=== PATIENT | male | born 1960 | race Caucasian/White ===

== ENCOUNTER → 2018-11-09 | Outpatient (CLI) | payer OTHER ==
--- NOTE | 2018-11-09 15:39 | RAD ---
Indication: Left breast palpable abnormality. Technique: Limited left breast ultrasound the region of palpable abnormality. Comparison: Same date diagnostic mammogram Findings: At 9:00 position approximately 3 cm from the nipple in the region of palpable abnormality there is a lobulated oval-shaped masslike lesion measuring 2.2 x 0.6 x 1.6 cm which is wider than taller and is isoechoic to the rest of the breast parenchyma. No internal vascularity or posterior shadowing is seen. 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 If there is a change in the size or symptoms a repeat ultrasound is recommended. Clinical correlation. BI-RADS 2: Benign finding.
--- NOTE | 2018-11-10 14:49 | RAD ---
DATE: 11/09/2018 EXAM: DIGITAL DIAGNOSTIC BILATERAL HISTORY: Left breast palpable abnormality for 2-3 months. COMPARISON: None This study was interpreted with the benefit of Computerized Aided Detection (CAD ). FINDINGS: Breast Density: FATTY The Breast Parenchyma is primarily fatty replaced. Breast parenchyma level density A.. The skin and nipples are within normal limits. BB-marker is seen in the medial aspect of the left breast at 9:00 position. No suspicious calcifications, spiculated mass or area of architectural distortion seen. IMPRESSION: No mammographic abnormality seen. Please ultrasound report from the same day. BI-RADS CATEGORY: 2 BENIGN FINDING(S) RECOMMENDED FOLLOW-UP: PQRS compliance statement: Patient information was entered into a reminder system with a target due date for the next mammogram. Mammography is a sensitive method for finding small breast cancers, but it does not detect them all and is not a substitute for careful clinical examination. A negative mammogram does not negate a clinically suspicious finding and should not result in delay in biopsying a clinically suspicious abnormality. "Our facility is accredited by the [employer] Mammography Program." [facility]D
== END | disposition home or self-care (01) ==
LOC: MAMMO 13:45
PROVIDERS: ATTEND Nurse Practitioner Family
DX: R92.2 Inconclusive mammogram (principal)
CPT/HCPCS: 76641; 77066